=== PATIENT | male | born 1940 | race Caucasian/White ===

== ENCOUNTER 2018-05-14 14:52 | Emergency (ER) | payer OTHER, BC ==
--- NOTE | 2018-05-14 14:58 | EDPHY ---
H & P Time Seen by Provider: 05/14/18 14:56 HPI/ROS: Chief complaint. Chest pain HPI. 77-year-old male presents emergency department with chest pain that began last night. He describes as across the entire precordium with some radiation to his back. He describes the pain as"hurts". He also had shortness of breath. He got up and walked around during the night because he was so uncomfortable. He had no increased discomfort with exertion or breathing. It was worse with lying down. He has had a recent URI with congestion cough but no fever. Recent diverticulitis with slight residual left lower quadrant abdominal pain but basically has resolved. He has no unusual leg pain or swelling. He has been traveling recently. He has no discomfort now ROS 10 systems were reviewed and negative with the exception of the elements mentioned in the history of present illness Past Medical/Surgical History: COPD, leaky heart valve, hypertension Social History: , nonsmoker, no alcohol Physical Exam: General Appearance: Alert well-developed male mild distress vital signs are stable Eyes: Pupils equal and round no pallor or injection. ENT, Mouth: Mucous membranes are moist. Respiratory: There are no retractions, lungs are clear to auscultation. Cardiovascular: Regular rate and rhythm. Gastrointestinal: Abdomen is soft and nontender, no masses, bowel sounds normal. Neurological: Awake and alert, sensory and motor exams grossly normal. Skin: Warm and dry, no rashes. Musculoskeletal: Neck is supple nontender. Extremities symmetrical, full range of motion. Psychiatric: Patient is oriented X 3, there is no agitation. Constitutional: Initial Vital Signs Temperature (C) 36.6 C 05/14/18 15:08 Heart Rate 63 05/14/18 15:08 Respiratory Rate 16 05/14/18 15:08 Blood Pressure 154/78 H 05/14/18 15:08 O2 Sat (%) 97 05/14/18 15:08 O2 Delivery Mode Room Air Medical Decision Making - Diagnostics EKG Interpretation: EKG interpreted by me shows normal sinus rhythm normal interval. QRS shows right bundle branch block. There is no significant ST elevation or depression. 1 PVC. Rate is 59 Imaging Results: Imaging Impressions Chest X-Ray 05/14/18 15:49 Impression: Mild elevation of the right hemidiaphragm with slight discoid atelectasis or scarring at both lung bases. Mild bronchitis. Chest x-ray interpreted by me shows mild elevation of the right hemidiaphragm. No evidence for pneumonia CT angio chest shows no evidence for pulmonary embolus or great vessel dissection. Reviewed by me and discussed with Radiology Procedures: IV normal saline, monitor ED Course/Re-evaluation: Re-evaluation 5:30 p.m. Patient is stable. He continues not to have any symptoms. He says he feels well. He is offered admission but feels well to go home. His pulse oximeter on room air is 94% saturation. He and I discussed imaging studies and chest x-ray showing bronchitis. He has a Z-Kishore that he will start from his regular physician whenever he seems to be developing bronchitis. We discussed treatment plan including criteria for return and importance of follow-up and further evaluation. He expresses understanding and agreement Differential Diagnosis: I considered acute coronary syndrome, pulmonary embolus, aortic dissection. The cause of his pain last night is unclear. Workup is normal and he has no symptoms now - Data Points Laboratory Results: Laboratory Results 05/14/18 15:01 05/14/18 15:01 05/14/18 05/14/18 05/14/18 15:49 15:03 15:01 WBC RBC Hgb Hct MCV MCH MCHC RDW Plt Count MPV Neut % (Auto) Lymph % (Auto) [place] % (Auto) Eos % (Auto) Baso % (Auto) Nucleat RBC Rel Count Absolute Neuts (auto) Absolute Lymphs (auto) Absolute Monos (auto) Absolute Eos (auto) Absolute Basos (auto) Absolute Nucleated RBC Immature Gran % Immature Gran # D-Dimer 0.42 ug/mLFEU ug/mLFEU (0.00-0.50) Sodium 139 mEq/L mEq/L (135-145) Potassium 4.6 mEq/L mEq/L (3.5-5.2) Chloride 105 mEq/L mEq/L (97-110) Carbon Dioxide 24 mEq/l mEq/l (22-31) Anion Gap 10 mEq/L mEq/L (6-14) BUN 22 mg/dL mg/dL (7-23) Creatinine 1.0 mg/dL mg/dL (0.7-1.3) Estimated GFR > 60 Glucose 134 mg/dL H mg/dL (70-100) Calcium 9.9 mg/dL mg/dL (8.5-10.4) POC Troponin I 0.01 ng/mL ng/mL (0.00-0.08) 05/14/18 15:01 WBC 7.50 10^3/uL 10^3/uL (3.80-9.50) RBC 4.91 10^6/uL 10^6/uL (4.40-6.38) Hgb 16.6 g/dL g/dL (13.7-17.5) Hct 48.3 % % (40.0-51.0) MCV 98.4 fL fL (81.5-99.8) MCH 33.8 pg pg (27.9-34.1) MCHC 34.4 g/dL g/dL (32.4-36.7) RDW 13.2 % % (11.5-15.2) Plt Count 196 10^3/uL 10^3/uL (150-400) MPV 9.3 fL fL (8.7-11.7) Neut % (Auto) 71.6 % % (39.3-74.2) Lymph % (Auto) 17.7 % % (15.0-45.0) [place] % (Auto) 8.3 % % (4.5-13.0) Eos % (Auto) 1.2 % % (0.6-7.6) Baso % (Auto) 0.5 % % (0.3-1.7) Nucleat RBC Rel Count 0.0 % % (0.0-0.2) Absolute Neuts (auto) 5.37 10^3/uL 10^3/uL (1.70-6.50) Absolute Lymphs (auto) 1.33 10^3/uL 10^3/uL (1.00-3.00) Absolute Monos (auto) 0.62 10^3/uL 10^3/uL (0.30-0.80) Absolute Eos (auto) 0.09 10^3/uL 10^3/uL (0.03-0.40) Absolute Basos (auto) 0.04 10^3/uL 10^3/uL (0.02-0.10) Absolute Nucleated RBC 0.00 10^3/uL 10^3/uL (0-0.01) Immature Gran % 0.7 % % (0.0-1.1) Immature Gran # 0.05 10^3/uL 10^3/uL (0.00-0.10) D-Dimer Sodium Potassium Chloride Carbon Dioxide Anion Gap BUN Creatinine Estimated GFR Glucose Calcium POC Troponin I Point of Care Test Results: Chemistry 05/14/18 15:03 POC Troponin I 0.01 ng/mL ng/mL (0.00-0.08) Departure - Departure Disposition: Home, Routine, Self-Care Clinical Impression: Chest pain Qualifiers: Chest pain type: unspecified Qualified Code(s): R07.9 - Chest pain, unspecified Condition: Good Instructions: Chest Pain (ED) Additional Instructions: Continue regular medications and inhalers Begin your Z-Kishore for bronchitis Return for worsening symptoms Re-evaluation in 1-2 days if not improving Referrals: Patient,NotPresent [Unknown] - As per Instructions Juan Gallagher MD [Medical Doctor] - 2-3 days, if not improved
[2018-05-14 15:10] LABS: PLATELET COUNT 196 10^3/uL (150-400)
[2018-05-14] MEDS ORDERED: IOPAMIDOL (ISOVUE 370) 100 ML BTL IV ONE (16:37)
--- NOTE | 2018-05-14 17:51 | CPEKG ---
Test Reason : OPEN Blood Pressure : / mmHG Vent. Rate : 059 BPM Atrial Rate : 057 BPM P-R Int : 210 ms QRS Dur : 145 ms QT Int : 435 ms P-R-T Axes : 011 -15 013 degrees QTc Int : 431 ms Sinus rhythm Ventricular premature complex Right bundle branch block Confirmed by Addison Cheung ([id number]) on 05/14/2018 5:51:39 PM Referred By: Confirmed By:Addison Cheung
[2018-05-14 18:15] VITALS: BP 151/83
== END 2018-05-14 18:15 | disposition home or self-care (01) ==
DX: R07.9 Chest pain, unspecified (principal); J40 Bronchitis, not specified as acute or chronic; I10 Essential (primary) hypertension
CPT/HCPCS: 71046; 71275; 93005; 99285; Q9967; 84484-ER

== ENCOUNTER 2018-09-14 23:07 | Inpatient (IN) | payer OTHER, BC ==
[2018-09-14] MEDS ORDERED: NS 1,000 ML IV ONE (23:17)
--- NOTE | 2018-09-14 23:22 | EDPHY ---
H & P Stated Complaint: Pos seizure, syncope, nausea, recent dental procedure, decreased appetite Time Seen by Provider: 09/14/18 23:21 HPI/ROS: HPI CHIEF COMPLAINT: Dizziness, generalized weakness, not feeling well, cough HISTORY OF PRESENT ILLNESS: This is a 77-year-old male he arrives to the emergency room multiple complaints. He called 911 tonight after he states that he was seated on the couch and developed sudden-onset dizziness. Room spinning sensation. This was at rest. States he was very severe for 30 min. He eventually got better and was able to get to his phone call 911. He did have a brief episode of chest pain he believes that it was due to anxiety when he lost connection with the reaming press operator. He currently does not have any chest pain. He states the dizziness resolved on its own. However is very severe when happen. He denies any vomiting. Denies double vision, he does complain of a global headache. Patient has remote history of this status happened him before when he had a seizure. He had 3 previous seizures when he was younger. He has not been on seizure medication in years. Patient reports to me his dizziness resolved. He denies any focal weakness or numbness or tingling. He reports to me that he had a dental procedure approximately 3 and half weeks ago. Ever since then he has felt ill. He has a cough. Nonproductive. He states that he is complaining of generalized weakness, and not feeling well. He reports a 20 lb weight loss. Past Medical History: Significant medical history for COPD not on oxygen, hypertension Past Surgical History: Prostatectomy, ankle surgery, recent dental surgery Social History: Denies drugs alcohol tobacco. Lives independently. Family History: Noncontributory ROS REVIEW OF SYSTEMS: 10 Systems were reviewed and negative with the exception of the elements mentioned in the history of present illness. Exam Constitutional nontoxic no acute distress triage nursing summary reviewed, vital signs reviewed, awake/alert. Eyes normal conjunctivae and sclera, EOMI, PERRLA. HENT normal inspection, atraumatic, moist mucus membranes, no epistaxis, neck supple/ no meningismus, no raccoon eyes. Respiratory clear to auscultation bilaterally, normal breath sounds, no respiratory distress, no wheezing. Cardiovascular rate normal, regular rhythm, no murmur, no edema, distal pulses normal. Gastrointestinal soft, non-tender, no rebound, no guarding, normal bowel sounds, no distension, no pulsatile mass. Genitourinary no CVA tenderness. Musculoskeletal no midline vertebral tenderness, full range of motion, no calf swelling, no tenderness of extremities, no meningismus, good pulses, neurovascularly intact. Skin pink, warm, & dry, no rash, skin atraumatic. Neurologic no focal neurological exam. awake, alert and oriented x 3, AAOx3, moves all 4 extremities equally, motor intact, sensory intact, CN II-XII intact , normal cerebellar, normal vision, normal speech. Psychiatric normal mood/affect. Heme/Lymph/Immune no lymphadenopathy. Differential Diagnosis: Includes but is not limited to in a particular order her vertigo, central vertigo, dehydration, electrolyte disturbance, infection, pneumonia, ACS Medical Decision Making: Plan for this patient IV establishment IV fluid bolus , CT scan head without contrast, CT angiogram head and neck, basic labs, troponin, EKG, chest x-ray and re-evaluate. Re-evaluation: EKG interpretation by me on record in [facility] system. Impression time of EKG 2317 sinus rhythm rate of 67, NM interval 231, right bundle-branch block present. No signs of acute ischemia. Troponin 0.01. Lactic acid 2.4. CT scan head without contrast no acute intracranial abnormality. This was faxed me by direct [facility] at 12:[address] angiogram head and neck with IV contrast shows no hemodynamically significant flow-limiting stenosis of the head or neck vessels no acute vascular injury or aneurysm there is global brain parenchymal volume loss and there is severe multi cervical degenerative disc disease faxed me by [facility] at 12:49 a.m.. . Chest x-ray reviewed negative for acute cardiopulmonary disease. 0155: Patient re-evaluated this time resting comfortably. Denies any complaints but specifically denies any dizziness. Patient dizziness resolved prior to arrival. His neurological exam is unremarkable here. He had unremarkable CT head and CT angiogram head and neck. Troponin negative. EKG nonischemic. Repeat lactic trended down. Plan for admission to the hospitalist service for sudden-onset dizziness, now resolved possible TIA. 0155AM: Patient doing well this time and agrees for hospital admission. 1:55 a.m. discussed the case with Dr. Valdez Agrees to admit. Source: Patient - Medical/Surgical History Hx Asthma: No Hx Chronic Respiratory Disease: Yes Hx Diabetes: No Hx Cardiac Disease: No Hx Renal Disease: No Hx Cirrhosis: No Hx Alcoholism: No Hx HIV/AIDS: No Hx Splenectomy or Spleen Trauma: No Other PMH: COPD, Seizures, dental procedures - Social History Smoking Status: Never smoked Constitutional: Initial Vital Signs Heart Rate 83 09/14/18 23:10 Respiratory Rate 16 09/14/18 23:10 Blood Pressure 168/79 H 09/14/18 23:10 O2 Sat (%) 95 09/14/18 23:10 O2 Delivery Mode Room Air O2 (L/minute) 1 Allergies/Adverse Reactions: No Known Allergies Allergy (Unverified 09/14/18 23:12) Home Medications: Medication Instructions Recorded Albuterol [Proventil Inhaler HFA 2 puffs IH Q4H PRN 09/14/18 (*)] Budesonide/Formoterol 160/4.5 2 puffs IH BID 09/14/18 [Symbicort 160-4.5 Mcg Inh (*)] Lisinopril [Zestril 2.5 mg (*)] 2.5 mg PO DAILY 09/14/18 Herbals/Supplements -Info Only 1 ea PO DAILY 09/15/18 Ibuprofen/Diphenhydramine Cit 1 each PO HS PRN 09/15/18 [Advil Pm Caplet] Medical Decision Making - Data Points Laboratory Results: Laboratory Results 09/15/18 04:26 09/15/18 04:26 09/15/18 04:26 Hemoglobin A1c 5.3 % % (4.0-6.0) Estim Average Glucose 105 mg/dL mg/dL (68-126) Medications Given: Discontinued Medications Acetaminophen (Tylenol) 650 mg PO Q4HRS PRN PRN Reason: Pain, Mild/Fever, Can Take PO Stop: 03/14/19 01:53 Last Admin: 09/15/18 03:06 Dose: 650 mg Budesonide/Formoterol Fumarate (Symbicort 160-4.5 Mcg Inhaler) 2 puffs IH BID FREIDA Stop: 03/14/19 20:59 Last Admin: 09/16/18 08:58 Dose: Not Given Diazepam (Valium) 2.5 mg IVP ONCALL ONE Stop: 09/15/18 11:34 Last Admin: 09/15/18 11:41 Dose: 2.5 mg Sodium Chloride (Ns) 1,000 mls @ 0 mls/hr IV EDNOW ONE; Wide Open PRN Reason: Protocol Stop: 09/14/18 23:18 Last Admin: 09/14/18 23:20 Dose: 1,000 mls Lactated Ringer's (Lr) 1,000 mls @ 100 mls/hr IV CONT FREIDA Stop: 03/14/19 02:29 Last Admin: 09/15/18 03:05 Dose: 1,000 mls Lisinopril (Zestril) 2.5 mg PO DAILY FREIDA Stop: 03/14/19 16:14 Last Admin: 09/16/18 11:25 Dose: 2.5 mg Point of Care Test Results: Chemistry 09/14/18 23:25 POC Troponin I 0.01 ng/mL ng/mL (0.00-0.08) Departure - Departure Disposition: [facility] Acute Clinical Impression: Generalized weakness, Dizziness Condition: Fair
[2018-09-14] MEDS ORDERED: IOPAMIDOL (ISOVUE 370) 100 ML BTL IV ONE (23:32)
[2018-09-14 23:38] LABS: PLATELET COUNT 178 10^3/uL (150-400)
[2018-09-15 00:09] LABS: INR 1.15 (0.83-1.16); PROTIME(PATIENT) 14.2 SEC (12.0-15.0)
[2018-09-15] MEDS ORDERED: ONDANSETRON 4 MG/2 ML VIAL IVP PRN (01:54)
[2018-09-15] MEDS ORDERED: ACETAMINOPHEN 325 MG TAB PO PRN (01:54)
[2018-09-15] MEDS ORDERED: ONDANSETRON DISINTEGRATING 4 MG TAB PO PRN (01:54)
[2018-09-15] MEDS ORDERED: LORazepam 0.5 MG TAB PO PRN (02:19)
[2018-09-15] MEDS ORDERED: LR 1,000 ML IV SCH (02:30)
--- NOTE | 2018-09-15 02:34 | PDGENHP ---
History and Physical - Chief Complaint Dizziness - History of Present Illness 77 yo M w/ hx of HTN and COPD presents after acute onset dizziness. The patient was at home when around 9:30 PM he noted acute onset, severe dizziness. He describes a "room spinning" sensation that was so severe he could not open his eyes or get to a phone for about an hour. When he got to a phone he called 911 and EMS was summoned. His symptoms are now resolved. He denies any weakness or numbness. He does have a tremor in his upper extremities, particularly with intention, but he states this is sometimes normal for him. At the of my evaluation it is 5 hours after last known normal. A CT and CTA Head/neck were performed in the ED, which did not reveal acute abnormalities. In addition, the patient describes about 1 month of poor appetite. He claims a 25 lb weight loss during this period. He denies vomiting, diarrhea, abdominal pain, melena, and BRBPR. His laboratory work-up is only notable for mildly elevated lactate and lipase. He is being admitted for TIA work-up. Case discussed with ED physician Dr. Baumann; records reviewed and summarized above. History Information - Allergies/Home Medication List Allergies/Adverse Reactions: No Known Allergies Allergy (Unverified 09/14/18 23:12) Home Medications: Atrovent Neb (*) 09/14/18 [Last Taken Unknown] Lisinopril 09/14/18 [Last Taken Unknown] Symbicort 160-4.5 Mcg Inh (*) 09/14/18 [Last Taken Unknown] VITAMINS A & D TABLET 09/14/18 [Last Taken Unknown] I have personally reviewed and updated: family history, medical history - Past Medical History COPD, hypertension - Surgical History Additional surgical history: Ankle, knee, and elbow surgeries. Prostatectomy - Family History Additional family history: Diverticulitis - Social History Smoking Status: Never smoked Review of Systems Review of Systems: ROS: 10pt was reviewed & negative except for what was stated in HPI & below Physical Exam Physical Exam: Temp Pulse Resp BP Pulse Ox 36.8 C 84 16 146/89 H 98 09/15/18 00:17 09/15/18 02:01 09/15/18 02:01 09/15/18 02:01 09/15/18 02:01 O2 (L/minute) 2 Constitutional: no apparent distress, not in pain Eyes: PERRL, EOMI Ears, Nose, Mouth, Throat: moist mucous membranes, no oral mucosal ulcers Cardiovascular: regular rate and rhythym, no murmur, rub, or gallop Respiratory: no respiratory distress, clear to auscultation Gastrointestinal: normoactive bowel sounds, soft, non-tender abdomen Skin: warm, normal color Musculoskeletal: full muscle strength, no muscle tenderness Neurologic: AAOx3, CN II-XII Intact, other (Finger to nose dysmetria noted bilaterally) Psychiatric: interacting appropriately, not anxious Lab Data & Imaging Review 09/14/18 23:15 09/14/18 23:15 WBC 9.70 10^3/uL (3.80-9.50) H 09/14/18 23:15 RBC 4.97 10^6/uL (4.40-6.38) 09/14/18 23:15 Hgb 16.4 g/dL (13.7-17.5) 09/14/18 23:15 Hct 46.6 % (40.0-51.0) 09/14/18 23:15 MCV 93.8 fL (81.5-99.8) 09/14/18 23:15 MCH 33.0 pg (27.9-34.1) 09/14/18 23:15 MCHC 35.2 g/dL (32.4-36.7) 09/14/18 23:15 RDW 12.0 % (11.5-15.2) 09/14/18 23:15 Plt Count 178 10^3/uL (150-400) 09/14/18 23:15 MPV 9.1 fL (8.7-11.7) 09/14/18 23:15 Neut % (Auto) 70.7 % (39.3-74.2) 09/14/18 23:15 Lymph % (Auto) 18.4 % (15.0-45.0) 09/14/18 23:15 [place] % (Auto) 9.0 % (4.5-13.0) 09/14/18 23:15 Eos % (Auto) 0.9 % (0.6-7.6) 09/14/18 23:15 Baso % (Auto) 0.4 % (0.3-1.7) 09/14/18 23:15 Nucleat RBC Rel Count 0.0 % (0.0-0.2) 09/14/18 23:15 Absolute Neuts (auto) 6.86 10^3/uL (1.70-6.50) H 09/14/18 23:15 Absolute Lymphs (auto) 1.78 10^3/uL (1.00-3.00) 09/14/18 23:15 Absolute Monos (auto) 0.87 10^3/uL (0.30-0.80) H 09/14/18 23:15 Absolute Eos (auto) 0.09 10^3/uL (0.03-0.40) 09/14/18 23:15 Absolute Basos (auto) 0.04 10^3/uL (0.02-0.10) 09/14/18 23:15 Absolute Nucleated RBC 0.00 10^3/uL (0-0.01) 09/14/18 23:15 Immature Gran % 0.6 % (0.0-1.1) 09/14/18 23:15 Immature Gran # 0.06 10^3/uL (0.00-0.10) 09/14/18 23:15 PT 14.2 SEC (12.0-15.0) 09/14/18 23:15 INR 1.15 (0.83-1.16) 09/14/18 23:15 APTT 28.6 SEC (23.0-38.0) 09/14/18 23:15 VBG Lactic Acid 1.7 mmol/L (0.7-2.1) 09/15/18 00:30 Sodium 137 mEq/L (135-145) 09/14/18 23:15 Potassium 4.1 mEq/L (3.5-5.2) 09/14/18 23:15 Chloride 103 mEq/L (97-110) 09/14/18 23:15 Carbon Dioxide 19 mEq/l (22-31) L 09/14/18 23:15 Anion Gap 15 mEq/L (6-14) H 09/14/18 23:15 BUN 27 mg/dL (7-23) H 09/14/18 23:15 Creatinine 1.1 mg/dL (0.7-1.3) 09/14/18 23:15 Estimated GFR > 60 09/14/18 23:15 Glucose 93 mg/dL (70-100) 09/14/18 23:15 Calcium 9.6 mg/dL (8.5-10.4) 09/14/18 23:15 Magnesium 2.0 mg/dL (1.6-2.3) 09/14/18 23:15 Total Bilirubin 0.6 mg/dL (0.1-1.4) 09/14/18 23:15 Conjugated Bilirubin 0.4 mg/dL (0.0-0.5) 09/14/18 23:15 Unconjugated Bilirubin 0.2 mg/dL (0.0-1.1) 09/14/18 23:15 AST 23 IU/L (17-59) 09/14/18 23:15 ALT 34 IU/L (21-72) 09/14/18 23:15 Alkaline Phosphatase 51 IU/L (38-126) 09/14/18 23:15 POC Troponin I 0.01 ng/mL (0.00-0.08) 09/14/18 23:25 NT-Pro-B Natriuret Pep 102 pg/mL (0-450) 09/14/18 23:15 Total Protein 7.2 g/dL (6.3-8.2) 09/14/18 23:15 Albumin 4.6 g/dL (3.5-5.0) 09/14/18 23:15 Lipase 526 IU/L (23-300) H 09/14/18 23:15 Urine Color YELLOW 09/15/18 00:35 Urine Appearance CLEAR 09/15/18 00:35 Urine pH 5.0 (5.0-7.5) 09/15/18 00:35 Ur Specific [place] 1.026 (1.002-1.030) 09/15/18 00:35 Urine Protein NEGATIVE (NEGATIVE) 09/15/18 00:35 Urine Ketones 1+ (NEGATIVE) H 09/15/18 00:35 Urine Blood NEGATIVE (NEGATIVE) 09/15/18 00:35 Urine Nitrate NEGATIVE (NEGATIVE) 09/15/18 00:35 Urine Bilirubin NEGATIVE (NEGATIVE) 09/15/18 00:35 Urine Urobilinogen NEGATIVE EU (0.2-1.0) 09/15/18 00:35 Ur Leukocyte Esterase NEGATIVE (NEGATIVE) 09/15/18 00:35 Urine RBC 1-3 /hpf (0-3) 09/15/18 00:35 Urine WBC 1-3 /hpf (0-3) 09/15/18 00:35 Ur Epithelial Cells TRACE /lpf (NONE-1+) 09/15/18 00:35 Urine Mucus TRACE /lpf (NONE-1+) 09/15/18 00:35 Urine Glucose NEGATIVE (NEGATIVE) 09/15/18 00:35 Imaging Review: Imaging Impressions Chest X-Ray 09/14/18 23:18 Impression: 1. Chronically elevated right hemidiaphragm. 2. No pneumonia, pleural effusion or pneumothorax. Assessment & Plan Assessment: 77 yo M w/ hx of COPD and HTN presents with acute onset of vertigo, now resolved , concerning for possible TIA. Plan: 1. TIA - Acute onset, severe vertigo now resolved; he does have persistent, bilateral finger to nose dysmetria on my exam, but it is now about 5 hours after onset of symptoms and he states this is sometimes chronically present. CT and CTA Head/Neck without acute abnormalities. - Admit for observation - MRI Brain ordered - TTE w/ bubble (patient tells me he has known "hole in his heart") - Lipid panel, A1c with morning labs - Monitor on telemetry - PT/OT/BIN PACKER evaluations - Neurology consultation placed 2. Poor appetite, weight loss - Patient describes about 1 month of poor appetite and weight loss, he claims 25 lbs. He denies vomiting, abdominal pain, diarrhea, melena, or BRBPR. His laboratory work-up is only notable for mildly elevated lactate and lipase with normal LFTs. - Will check TSH - Recommend outpatient age appropriate cancer screening 3. Lactic acidosis - Mild, resolved with IVF in the ED. This is likely related to dehydration in setting of poor PO intake. - LR overnight 4. COPD - No evidence of acute exacerbation. - Continue home meds pending reconciliation 5. HTN - Continue home meds pending reconciliation Diet - Regular pending swallow screen Code - Full Ppx - SCDs Dispo - Admit under observation status
[2018-09-15 05:01] LABS: PLATELET COUNT 170 10^3/uL (150-400)
[2018-09-15] MEDS ORDERED: DIAZEPAM 10 MG/2 ML SYR IVP ONE (11:33)
--- NOTE | 2018-09-15 12:09 | ECHO ---
[email or web address] [address] Main: [phone] Echocardiography Examination Transthoracic Name: ABBY WASHINGTON MR#: [id number] Study Date: 09/15/2018 Study Time: 08:42 AM Date of : 1940 Age: 77 year(s) Height: 175.3 cm (69 in.) Weight: 76.2 kg (168 lb.) BSA: 1.92 m2 Gender: Male Examination: Echo Contrast: Image Quality: Fair Rhythm: Heart Rate: BP: / Indication: TIA Procedure Staff Referring Physician: Product Scientist: Desirae Clark RDCS Reading Physician: Robel Pierce MD Requesting Provider: Ordering Physician: Anderson Valdez Indication: TIA Measurements Chambers AV/MV Label Value Normal Value Label Value Normal Value LVDd, 2D 4.1 cm (4.2cm - 5.9cm) AV PGmean 4 mmHg LVDs, 2D 2.6 cm (2.1cm - 4cm) AV Vmax 1.55 m/s IVSd, 2D 0.8 cm (0.6cm - 1.1cm) MV E Vmax 0.72 m/s LVPWd, 2D 0.9 cm (0.6cm - 1cm) MV A Vmax 0.89 m/s LVEF, 2D 66 % (54% - 74%) MV E/A 0.81 LADs, 2D 4.3 cm (3cm - 4cm) MV E/E' lateral 7.5 Additional Vessels MV E/E' septal 12.3 (0.45 - 1.25) Label Value Normal Value MV E' septal 0.06 m/s AoAsc 3.8 cm MV E' lateral 0.1 m/s AoRoot, MM 3.6 cm (2.2cm - 3.7cm) MV E/E' mean 9 MV E' mean 0.08 m/s TV/PV Label Value Normal Value RA Pressure 5 mmHg RVSP 31 mmHg TR Pmax 26 mmHg TR Vmax 2.57 m/s Patient: ABBY WASHINGTON Study Date: 09/15/2018 Page 1 of 3 08:42 AM Conclusions Left Ventricle: Left ventricle is normal in size. EF range is estimated at 60 % - 65 %. There are no regional wall motion abnormalities. Right Ventricle: Right ventricular systolic function is normal. Mitral Valve: Moderately calcified posterior mitral leaflet.. Aortic Valve: Aortic valve opens well.. There is no aortic stenosis. Tricuspid Valve: Trivial tricuspid regurgitation. Right Ventricular systolic pressure is measured at 31 mmHg. Findings Left Ventricle: Left ventricle is normal in size. Normal global systolic left ventricular function. EF range is estimated at 60 % - 65 %. Left ventricle wall thickness is normal. There are no regional wall motion abnormalities. Left ventricular diastolic function parameters are normal. IVS: The septum is intact. Right Ventricle: Normal size right ventricle. Right ventricular systolic function is normal. Left Atrium: The left atrium is normal in size. IAS: An agitated saline study was performed and was negative for intracardiac shunting. Right Atrium: The right atrium is normal in size. Mitral Valve: Moderately calcified posterior mitral leaflet.. Trivial mitral regurgitation. No mitral valve stenosis. Aortic Valve: Aortic valve opens well.. Mild aortic regurgitation is present. There is no aortic stenosis. Tricuspid Valve: Tricuspid valve leaflets are normal in appearance and function. Trivial tricuspid regurgitation. No tricuspid valve stenosis. Right Ventricular systolic pressure is measured at 31 mmHg. Pulmonary artery pressure normal. Pulmonic Valve: Pulmonic valve is poorly visualized. No pulmonic valve regurgitation is evident. There is no pulmonic valve stenosis. Aorta: The aorta is normal. The aortic root size in M-mode measures 3.6 cm. The ascending aorta measures 3.8 cm. Aorta Measurements AoRoot, MM is 3.6 cm. Pericardium: No pericardial effusion. No pleural effusion present. Exam Details Procedure Ordered: Echo Procedure Status: Routine study Patient: ABBY WASHINGTON Study Date: 09/15/2018 Page 2 of 3 08:42 AM Image Quality: Fair Facility Location: Cardiac Echo 1 (No Signature Object) Patient: ABBY WASHINGTON Study Date: 09/15/2018 Page 3 of 3 08:42 AM [id number]
--- NOTE | 2018-09-15 14:53 | HOSPPROG ---
Hospitalist Progress Note Assessment/Plan: 77 yo M w/ hx of COPD and HTN presents with acute onset of vertigo, now resolved , concerning for possible TIA. 1st encounter chart reviewed * neurologic symptoms w initial concern for a TIA/ after reviewing his care w Dr Kelley, likely has vertigo -MRI shows nothing acute -CT of the head and neck without acute abnormalities -echocardiogram shows no intracardiac shunting * weight loss with poor appetite -has had a 25 pound unintentional weight loss, but after talking w him, he has been sick this winter -TSH is 3.6 * lactic acidosis -improved * COPD -resumed home meds * hypertension -resume lisinopril *plan: he needs PT and OT to see him, feels too weak to return home this evening. Will re-evaluate in the morning and if stable, will dc. Subjective: Jarred said he is feeling better but too poorly to be discharged. Objective: Vital Signs Temp Pulse Resp BP Pulse Ox 36.6 C 56 L 18 117/66 95 09/15/18 11:09 09/15/18 11:09 09/15/18 11:09 09/15/18 11:09 09/15/18 11:09 Laboratory Results 09/15/18 04:26 09/15/18 04:26 09/14/18 09/15/18 09/16/18 05:59 05:59 05:59 Intake Total 1215 330 Balance 1215 330 PT 14.2 SEC (12.0-15.0) 09/14/18 23:15 INR 1.15 (0.83-1.16) 09/14/18 23:15 - Physical Exam Constitutional: no apparent distress, appears nourished, not in pain Eyes: PERRL Ears, Nose, Mouth, Throat: hearing normal Cardiovascular: regular rate and rhythym, no murmur, rub, or gallop Respiratory: no respiratory distress Skin: warm Musculoskeletal: generalized weakness Neurologic: AAOx3, sensation intact bilaterally, No weakness, No numbness, No pronator drift, No facial droop Psychiatric: interacting appropriately, not anxious ICD10 Worksheet Patient Problems: Problems Problem Status Onset Dizziness Acute Generalized weakness Acute
[2018-09-15] MEDS ORDERED: Ibuprofen/Diphenhydramine Cit [Advil Pm Caplet] PO PRN (16:01)
[2018-09-15] MEDS ORDERED: ALBUTEROL 60 PUFFS/8 GM MDI IH PRN (16:01)
--- NOTE | 2018-09-15 16:26 | ASMTCMCOM ---
CM Note CM Note Notes: Pt likely has vertigo, neurology consulting. Pt residing alone and is house sitting for the year, pt lives in [place] and [place]. Pt son in law and pt girlfriend will be in [place] Monday they will be able to help him at home. EMERGENCY MEDICAL SERVICE COORDINATOR rec home, OT/PT evals ordered today and will eval tomorrow. Pt marcelohtalejo Yesenia who resides in [place] ([phone]) is concerned for her father, reports she has been sending him food from [employer] and she worries about him driving. Yesenia states pt has no support system here in [place]. Yesenia requests unskilled home care list to hire someone to check on pt, this list was emailed to her at [email or web address]. Pt likely d/c independent depending on PT/OT evals. Date Signed: 09/15/2018 04:25 PM Electronically Signed By:ROM Rios
[2018-09-15] MEDS: LISINOPRIL 2.5 MG TAB PO SCH (17:07)
--- NOTE | 2018-09-15 18:08 | GCON ---
[f rep st] CONSULTATION NEUROLOGY CONSULT REFERRING PHYSICIAN: Anderson Valdez MD CHIEF COMPLAINT: Vertigo. HISTORY OF PRESENT ILLNESS: The patient is a very pleasant 77-year-old gentleman, who had been living in [place], [place] in the last years, but recently moved to [place] in November of 2017, to housesit for his daughter who lives in [place]. He has traveled since being here to different areas and not been here continuously. He states that when it comes to altitude, he does feel worse as he has COPD and migraines and seems to have exacerbated his conditions. He also has a history of apparently 3 generalized tonic-clonic seizures around 30 years ago. They were treated with Dilantin by a neurologist in [place] at that time and then he was tapered off Dilantin 30 years ago and has had no further seizures. He also has migraine with aura, but primarily migraine aura without headache or sometimes mild headache. He also has a history of pure [id number]-er-ihwf vertigo. His 1st episode was 8 years ago and he had an extensive neurologic evaluation without any specific etiology found. He thinks he may have been diagnosed with peripheral vertigo at that time. He had a 2nd episode some years later that was fairly brief and he did not seek care. Then his 3rd episode of vertigo happened yesterday which led to this hospitalization. He had not been drinking alcohol and has not drank alcohol for the last month. However, he has been sick with bronchitis and had recent surgery and that may have exacerbated COPD, not clear. He has had decreased appetite and then had 7-8 minutes of significant rcat-su-gqth vertigo last night, which brought him to the ED. He had a full stroke evaluation. Please see ED notes for details. The CT head was unremarkable for acute changes. He does have some atrophy and ventriculomegaly. He then had CTA of the head and neck, which showed no acute findings or large vessel disease. CTA neck showed widely patent carotid and vertebral arteries. No flow-limiting stenosis. He then had a followup brain MRI that showed no acute stroke or any other acute findings. No explanation for dizziness. Again, there was some atrophy and ventriculomegaly, otherwise normal age-related changes. He is now completely asymptomatic and feeling well. He has walked on his own to the bathroom. He did not at any time have any focal motor, sensory, language or motor speech symptoms. It was pure vertigo just for 7 or 8 minutes with feeling wobbly afterwards. Echocardiogram result: He had a surface echocardiogram, which showed no regional wall abnormalities. Agitated saline study was done and it was negative for intracardiac shunting. Left atrium was normal in size. Telemetry has shown no atrial fibrillation thus far. EF is between 60% and 65%. REVIEW OF SYSTEMS: A 10-point review of systems was done and only pertinent to the patient's HPI. For past medical history, social history, family history, home medications, allergies, see Dr. Valdez's H and P. PHYSICAL EXAM: VITAL SIGNS: Blood pressure 128/61, temperature 36.6, heart rate 60s. GENERALLY: He is awake, alert, very pleasant gentleman. NEUROLOGIC : Higher mental function is normal. He is lucid and appears cognitively intact. He has no aphasia. On cranial nerve exam, there is no dysarthria. Extraocular moves are full. There is no nystagmus. Essentially, cranial nerves 2-7 and 12 are normal. On motor exam, he has normal strength and tone throughout. On sensory exam, normal light touch in all 4 extremities. 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 IMPRESSION AND PLAN: 1. Vertigo, resolved. Fortunately, the patient's comprehensive neurovascular workup is negative for stroke. Brain MRI shows no diffusion-weighted abnormalities. Angiography of the head and neck shows no significant occlusive disease or large vessel occlusion. Echocardiogram shows no intracardiac clot, or other significant findings at this point. Overall, this may have been a third episode of peripheral vertigo. We discussed the differential diagnosis including benign paroxysmal positional vertigo. The event last night was identical to the event he had 8 years ago and the second event 3 or 4 years ago. He was counseled at length. He is feeling well, but still generally weak as what happens with him after a vertiginous episode. We will have him walk the unit for safety and have him assessed by Physical Therapy tomorrow prior to discharge. He can do outpatient vestibular therapy. I also spoke to his daughter, in [place]. I counseled her regarding our thoughts and findings. She will be contacted by Case Management regarding home health resources here in the [place] area. He will likely move [place] hoe [place] in the next month, according to the patient and his daughter. He does not tolerate being at altitude due to COPD. No further recommendations. We will sign off and follow up as needed. Please do not hesitate to call if there are any changes in his neurologic status or any questions. Seventy total minutes floor time; over 50% in direct counseling and coordination of care. /[id number]/MODL MTDD
[2018-09-15] MEDS: BUDESONIDE/FORMOTEROL 160/4.5 60 PUFFS/MDI IH SCH (21:36)
--- NOTE | 2018-09-16 08:10 | HOSPPROG ---
Hospitalist Progress Note Assessment/Plan: 77 yo M w/ hx of COPD and HTN presents with acute onset of vertigo, now resolved , concerning for possible TIA. * Vertigo -MRI shows nothing acute -CT of the head and neck without acute abnormalities -echocardiogram shows no intracardiac shunting -PT evaluated early this morning, but patient said he did poorly because he was in a deep sleep * weight loss with poor appetite -has had a 25 pound unintentional weight loss, but after talking w him, he has been sick this winter -TSH is 3.6 * lactic acidosis -improved * COPD -resumed home meds * hypertension -resume lisinopril *plan: dc home, CM has provided his daughter with providers to help him at home. Subjective: Jarred is not dizzy, said he didn't sleep well, has post nasal drip Objective: Vital Signs Temp Pulse Resp BP Pulse Ox 36.6 C 48 L 16 144/70 H 95 09/16/18 08:00 09/16/18 08:00 09/16/18 08:00 09/16/18 08:00 09/16/18 08:00 Laboratory Results 09/15/18 04:26 09/15/18 04:26 09/15/18 09/16/18 09/17/18 05:59 05:59 05:59 Intake Total 1215 480 Output Total 1575 Balance 1215 -1095 PT 14.2 SEC (12.0-15.0) 09/14/18 23:15 INR 1.15 (0.83-1.16) 09/14/18 23:15 - Physical Exam Constitutional: no apparent distress, appears nourished Ears, Nose, Mouth, Throat: hearing normal Cardiovascular: regular rate and rhythym Respiratory: no respiratory distress, no rales or rhonchi, clear to auscultation Skin: warm Neurologic: AAOx3 Psychiatric: interacting appropriately, anxious ICD10 Worksheet Patient Problems: Problems Problem Status Onset Dizziness Acute Generalized weakness Acute
[2018-09-16] MEDS: BUDESONIDE/FORMOTEROL 160/4.5 60 PUFFS/MDI IH SCH (08:58)
[2018-09-16] MEDS: LISINOPRIL 2.5 MG TAB PO SCH (11:25)
[2018-09-16 11:47] VITALS: BP 132/67
--- NOTE | 2018-09-16 11:54 | GDS ---
[f rep st] DISCHARGE SUMMARY DISCHARGE DIAGNOSES: 1. Vertigo, likely benign paroxysmal positional vertigo. 2. Weight loss with poor appetite. 3. Lactic acidosis. 4. Chronic obstructive pulmonary disease. 5. Hypertension. CONSULTATION: Dr. Pedrito Kelley HISTORY OF PRESENT ILLNESS: The patient is a 77-year-old gentleman who is here from the [facility] . He is in [place] taking care of his daughter's home while she is in [place]. He presented with ac [place]ct[place] onset of vertigo, which resolved. He had a workup in case he did have a stroke. Imaging showed nothing acute. His echocardiogram showed no intracardiac shunting. The plan is for him to be discha rged home. The daughter has requested a list of providers to check on him; this has been sent to her . HOSPITAL COURSE: 1. Vertigo, resolved. 2. Weight loss with poor appetite. He tells me he has been sick most of the winter. His appetite i s improving. TSH is stable at 3.6. Lactic acidosis improved. 3. Chronic obstructive pulmonary disease. Resumed his home medications. 4. Hypertension, on lisinopril. DISCHARGE CONDITION: Stable. Blood pressure is 144/70, heart rate of 48, respiratory rate of 16, O2 saturation on 1 L 95%, temperature is 36.6 Celsius. MEDICATIONS AT DISCHARGE: Please see the EMR. DISCHARGE INSTRUCTIONS: 1. Recommending that he avoid taking Benadryl at night for sleeping; this may be causing some of the symptoms of being dizzy. 2. Stay well hydrated. 3. To follow up with his primary care provider when he returns to the [facility]. 4. To return to the emergency room if he has any stroke-like symptoms. /[id number]/MODL
--- NOTE | 2018-09-16 14:59 | ASMTLACE ---
LACE Length of stay for Answers: 1 day current admission Acuity / Level of Answers: Yes Care: Did the patient have an inpatient admission? Comorbidities - select Answers: Chronic pulmonary disease all that apply Other Notes: HTN, seizures # of Emergency department Answers: 1-2 visits in the last 6 months Social determinants Answers: Lack of community resources and/or lack of social support (no pcp, lives alone, transportation, aishwarya d) Score: 12 Date Signed: 09/16/2018 02:58 PM Electronically Signed By:Meg Coe RN
--- NOTE | 2018-09-16 15:28 | ASDISCHSUM ---
Discharge Information Plan Status:Home with No Needs Medically Cleared to Leave:09/16/2018 Discharge Date:09/16/2018 03:00 PM CM D/C Disposition:Home, Routine, Self-Care ADT D/C Disposition: Projected Discharge Date:09/16/2018 03:00 PM Transportation at D/C:Other Discharge Delay Reason: Follow-Up Date:09/16/2018 03:00 PM Discharge Slot:2 - 12:01 pm - 18:00 pm Final Diagnosis:Vertigo, recent weight loss, lactic acidosis, COPD, HTN Placement Information Patient Contact Information Contact Name:PRABHU Relationship:Daughter Address: Home Phone: City: [facility] Phone: [facility] Code:[place] Email: Financial Information Financial Class:Medicare Primary Plan Desc:MEDICARE OUTPATIENT Primary Plan Number:[id number] Secondary Plan Desc[facility] Secondary Plan Number:[id number] Assessment Information LACE LACE Length of stay for Answers: 1 day current admission Acuity / Level of Answers: Yes Care: Did the patient have an inpatient admission? Comorbidities - select Answers: Chronic pulmonary disease all that apply Other Notes: HTN, seizures # of Emergency department Answers: 1-2 visits in the last 6 months Social determinants Answers: Lack of community resources and/or lack of social support (no pcp, lives alone, transportation, aishwarya d) Score: 12 Date Signed: 09/16/2018 02:58 PM Electronically Signed By:Meg Coe RN [facility] CM Progress Note CM Note CM Note Notes: Pt likely has vertigo, neurology consulting. Pt residing alone and is house sitting for the year, pt lives in [place] and [place]. Pt son in law and pt girlfriend will be in [place] Monday they will be able to help him at home. SENIOR STAFF PSYCHOLOGIST rec home, OT/PT evals ordered today and will eval tomorrow. Pt dghtr Yesenia who resides in [place] ([phone]) is concerned for her father, reports she has been sending him food from [employer] and she worries about him driving. Yesenia states pt has no support system here in [place]. Yesenia requests unskilled home care list to hire someone to check on pt, this list was emailed to her at [email or web address]. Pt likely d/c independent depending on PT/OT evals. Date Signed: 09/15/2018 04:25 PM Electronically Signed By:ROM Rios Case Management Discharge Plan Note Case Management Discharge Discharge Order Complete? Answers: Yes Patient to Obtain Answers: Other Notes: Private duty assistance Medications by [facility] Transportation Arranged Answers: Other Notes: Transportation (private duty) by [facility] re Transport will Pick (Date 09/16/2018 03:00 PM & Time) EMTALA Complete Answers: No Notes: N/A Case Management Transport Answers: No Notes: N/A Form Complete Faxed Final Orders Answers: No Notes: N/A Agency/Facility Transfer Answers: No Notes: N/A Report Printed & Faxed to Receiving Agency Family Notified Answers: Yes Notes: Call placed to pt's [facility] Yesenia Discharge Comments Notes: Spoke with ORTIZ Meyer. Pt to discharge home independently today. Per Betsy, pt's dghtr requesting a call from for additional assistance arranging private duty care. Call placed to pt's dghtr Yesenia . Per Yesenia, family is working on arranging private duty help with an agency from [facility]'s list. Dghtr denies CM assistance, reporting "everything has been taken care of." Met with pt to discuss discharge plan. Per pt, family arranged for [facility] (caregiver Cookie) to assist pt with transportation home. Pt also reports Cookie will stay with him overnight, until pt's son-in-law returns from a trip tomorrow. Pt's son-in-law will stay with pt for the next few days. Cookie from [facility] will likely return later in the week, to help when pt's son-in-law returns to work. PT/OT cleared pt for discharge. IM signed, copy placed in chart. Pt to follow up as directed. CM available for any further issues or concerns. Discharge Plan: Home Independently with Private Duty assistance from [facility] Date Signed: 09/16/2018 03:20 PM Electronically Signed By:Meg Coe RN Intervention Information Intervention Type:*IM-Signed Date of Service:09/16/2018 02:59 PM Patient Type:Observation Staff Member:ORTIZ Coe Taylor Hours: Discipline:Inhalation Therapy Aides Teacher Severity: Comment:
--- NOTE | 2018-09-16 15:52 | PDMN ---
Medical Necessity Medical necessity: [facility] M152 Dizziness, A-1 day: 77 yo w/ acute onset dizziness. Eval reveals poss TIA, lactic acidosis and pt c/o of poor appetite w/ 25 lb weight loss recently. Initially OBS for workup/tx but pt requires additional MN for neuro consult, PT/OT, further dx testing. Pt cont to feel weak, not back to baseline. Change to IP status 09/15/18@1601 per DEVELOPMENTAL MATHEMATICS PROFESSOR order. Hx COPD, HTN
== END 2018-09-16 15:00 | disposition home or self-care (01) | DRG 149 ==
LOC: EDUNIT# → F3N 09-15 02:41 → OBSVTOIN 09-15 16:01
PROVIDERS: ADMIT Student in an Organized Health Care Education/Training Program; ATTEND Student in an Organized Health Care Education/Training Program
DX: H81.10 Benign paroxysmal vertigo, unspecified ear (principal); R63.4 Abnormal weight loss; E87.2 Acidosis; J44.9 Chronic obstructive pulmonary disease, unspecified; I10 Essential (primary) hypertension
CPT/HCPCS: 70551-PN; 84484-ER; 92523-GN; 97116-GP; 97161-GP; 97165-GO; 97535-GO; J3360; Q9967